=== PATIENT | female | born 1980 | race Caucasian/White ===

== ENCOUNTER 2017-01-25 21:39 | Outpatient (CLI) | payer OTHER | END 2017-01-25 21:40 | disposition home or self-care (01) | DX: R19.7 Diarrhea, unspecified (principal) ==

== ENCOUNTER 2017-01-31 08:24 | Outpatient (CLI) | payer OTHER | END 2017-01-31 08:25 | disposition home or self-care (01) | DX: Z00.00 Encounter for general adult medical examination without abnormal findings (principal) ==

== ENCOUNTER 2017-02-15 09:40 | Outpatient (CLI) | payer OTHER ==
[2017-02-16 11:13] LABS: TEST RESULT REPORT (())
== END 2017-02-15 09:41 | disposition home or self-care (01) ==
LOC: LAB.WCP 09:40
PROVIDERS: ATTEND Family Medicine
DX: A09 Infectious gastroenteritis and colitis, unspecified (principal); Z11.3 Encounter for screening for infections with a predominantly sexual mode of transmission
CPT/HCPCS: 36415; 81599; 86704; 86706

== ENCOUNTER 2018-03-01 08:00 | Outpatient (CLI) | payer OTHER | END 2018-03-01 08:01 | disposition home or self-care (01) | LOC: LAB.R 08:00 | PROVIDERS: ATTEND Registered Nurse | DX: Z11.3 Encounter for screening for infections with a predominantly sexual mode of transmission (principal) | CPT/HCPCS: 87491; 87591 ==

== ENCOUNTER 2018-03-01 16:14 | Outpatient (CLI) | payer OTHER ==
[2018-03-01 16:55] LABS: HB2 TOTAL 14.5 g/dL; HEMOGLOBIN A1C 0.42 g/dL; HEMOGLOBIN A1C % 4.8 % (4.6-6.2)
[2018-03-01 17:35] LABS: THYROID STIMULATING HORMONE 5.54 uIU/mL (0.34-5.60)
[2018-03-01 17:41] LABS: PROLACTIN 14.28 ng/mL
[2018-03-01 18:03] LABS: FOLLICLE STIMULATING HORMONE 7.52 mIU/mL; LUTEINIZING HORMONE 18.39 mIU/mL
== END 2018-03-01 16:15 | disposition home or self-care (01) ==
LOC: LAB 16:14
PROVIDERS: ATTEND Registered Nurse
DX: N91.1 Secondary amenorrhea (principal); Z11.3 Encounter for screening for infections with a predominantly sexual mode of transmission
CPT/HCPCS: 36415; 81599; 82627; 82670; 83001; 83002; 83036; 84146; 84443; 87491; 87591

== ENCOUNTER 2018-03-16 08:01 | Outpatient (CLI) | payer OTHER ==
[2018-03-16 13:29] LABS: FOLLICLE STIMULATING HORMONE 6.42 mIU/mL
[2018-03-16 13:30] LABS: LUTEINIZING HORMONE 11.02 mIU/mL
== END 2018-03-16 08:02 | disposition home or self-care (01) ==
LOC: LAB.WCP 08:01
PROVIDERS: ATTEND Registered Nurse
DX: E28.2 Polycystic ovarian syndrome (principal)
CPT/HCPCS: 36415; 82670; 83001; 83002

== ENCOUNTER 2018-04-03 13:36 | Outpatient (CLI) | payer OTHER | END 2018-04-03 13:37 | disposition home or self-care (01) | LOC: LAB 13:36 | PROVIDERS: ATTEND Registered Nurse | DX: E28.2 Polycystic ovarian syndrome (principal) | CPT/HCPCS: 36415; 84144 ==

== ENCOUNTER 2018-04-07 14:13 | Outpatient (CLI) | payer OTHER | END 2018-04-07 14:14 | disposition home or self-care (01) | LOC: LAB.WCP 14:13 | PROVIDERS: ATTEND Registered Nurse | DX: E02 Subclinical iodine-deficiency hypothyroidism (principal) | CPT/HCPCS: 36415; 84443 ==

== ENCOUNTER 2018-11-27 16:06 | Outpatient (CLI) | payer OTHER | END 2018-11-27 16:07 | disposition critical access hospital (66) | LOC: EMS 16:06 | PROVIDERS: ATTEND Surgery | DX: R00.0 Tachycardia, unspecified (principal); R07.89 Other chest pain | CPT/HCPCS: A0425; A0427 ==

== ENCOUNTER 2018-11-27 16:40 | Emergency (ER) | payer OTHER ==
--- NOTE | 2018-11-27 17:00 | ED Physician Documentation ---
PD HPI CHEST PAIN - Stated complaint Stated Complaint: CP - History obtained from History obtained from: Patient - History of Present Illness Timing - onset: How many hours ago (1), Today Timing - onset during: Light activity. No: Exertion Timing - duration: Hours (1) Timing - details: Abrupt onset, Still present (improved but not resolved yet, still feeling anxious and like heart is going fast.) Quality: Tightness, Indigestion Location: Substernal Radiation: Back Associated symptoms: Shortness of air, Palpitations (feeling like heart is going fast/racing). No: Nausea, Feeling faint / dizzy Similar symptoms before: Has not had sx before Recently seen: Not recently seen Review of Systems Constitutional: denies: Fever, Chills Nose: denies: Rhinorrhea / runny nose, Congestion Throat: denies: Sore throat Cardiac: reports: Chest pain / pressure, Palpitations. denies: Pedal edema, Calf pain Respiratory: denies: Cough GI: denies: Abdominal Pain, Nausea, Vomiting, Diarrhea Musculoskeletal: denies: Extremity swelling Neurologic: reports: Headache. denies: Near syncope, Syncope PD PAST MEDICAL HISTORY - Past Medical History Cardiovascular: None Respiratory: None Neuro: None Endocrine/Autoimmune: None - Present Medications Home Medications: Ambulatory Orders Medication Instructions Recorded Confirmed Levothyroxine Sodium [Synthroid] 50 mcg PO DAILY 11/27/18 11/27/18 metFORMIN [Glucophage] 500 mg 11/27/18 - Allergies Allergies/Adverse Reactions: Allergies Allergy/AdvReac Type Severity Reaction Status Date / Time No Known Drug Allergies Allergy Verified 11/27/18 17:32 - Social History Does the pt smoke?: No Does the pt drink ETOH?: No Does the pt have substance abuse?: No - Family History Family history: denies: Venous thromboembolism PD ED PE NORMAL - Vitals Vital signs reviewed: Yes - General General: Alert and oriented X 3, Well developed/nourished, Other (seems anxious) - HEENT HEENT: Pharynx benign - Neck Neck: Supple, no meningeal sign, No adenopathy - Cardiac Cardiac: RRR, No murmur - Respiratory Respiratory: Clear bilaterally - Abdomen Abdomen: Soft, Non tender - Back Back: No CVA TTP - Derm Derm: Normal color, Warm and dry - Extremities Extremities: No deformity, No tenderness to palpate, No edema, No calf tenderness / cord - Neuro Neuro: Alert and oriented X 3, No motor deficit, Normal speech Eye Opening: Spontaneous Motor: Obeys Commands Verbal: Oriented GCS Score: 15 Results - Vitals Vitals: Oxygen O2 Source Room air - EKG (time done) 16:52 Rate: Rate (enter#) (82) Rhythm: NSR [place]: Normal Intervals: Normal [place] QRS: Normal Ischemia: Normal ST segments. No: ST elevation c/w ischemia, ST depression, T wave inversion (but has some flattening ) - Labs Labs: Laboratory Tests 11/27/18 11/27/18 11/27/18 17:45 17:45 17:45 WBC 12.5 H RBC 4.11 L Hgb 12.9 Hct 37.6 MCV 91.5 MCH 31.3 H MCHC 34.2 RDW 12.4 Plt Count 233 MPV 8.8 Neut # (Auto) 10.9 H Lymph # (Auto) 0.9 L Coal # (Auto) 0.6 Eos # (Auto) 0.0 Baso # (Auto) 0.0 Absolute Nucleated RBC 0.00 Nucleated RBC % 0.0 Sodium 133 L Potassium 3.4 L Chloride 96 L Carbon Dioxide 27 Anion Gap 10.0 BUN 14 Creatinine 0.7 Estimated GFR (MDRD) 95 Glucose 110 H Calcium 10.2 Magnesium 1.7 Total Bilirubin 0.4 AST 21 ALT 16 Alkaline Phosphatase 36 L Troponin I < 0.04 B-Natriuretic Peptide Total Protein 6.8 Albumin 4.2 Globulin 2.6 Albumin/Globulin Ratio 1.6 Lipase 29 TSH 11/27/18 11/27/18 17:45 17:45 WBC RBC Hgb Hct MCV MCH MCHC RDW Plt Count MPV Neut # (Auto) Lymph # (Auto) Coal # (Auto) Eos # (Auto) Baso # (Auto) Absolute Nucleated RBC Nucleated RBC % Sodium Potassium Chloride Carbon Dioxide Anion Gap BUN Creatinine Estimated GFR (MDRD) Glucose Calcium Magnesium Total Bilirubin AST ALT Alkaline Phosphatase Troponin I B-Natriuretic Peptide 13 Total Protein Albumin Globulin Albumin/Globulin Ratio Lipase TSH 1.77 PD MEDICAL DECISION MAKING - ED course Complexity details: reviewed results, considered differential (she has the feeling of dyspnea and heart racing still, with vitals showing HR <100 and good sats. No respiratory symptoms per se, except feeling of dyspnea. Negative Wells criteria. ), d/w patient Departure - Departure Disposition: Home, Self Care Clinical Impression: Chest discomfort, Heart rate fast Condition: Stable Record reviewed to determine appropriate education?: Yes Instructions: ED Chest Pain Atypical Unkn Cause Follow-Up: Cain Eldridge MD [Primary Care Provider] - Comments: No signs of heart attack or currently no heart arrhythmia. Your blood tests are okay. Not sure the cause of the fast heart rate and chest discomfort. It could have been an irregular heart rhythm temporarily. It could have been a low blood sugar episode or other things as well. If you have no further episodes then I would be fine. If you have recurrent episodes even to a mild degree, follow-up with your primary care to have them assess for heart rhythm recording device or other tests. Discharge Date/Time: 11/27/18 19:56
[2018-11-27] MEDS ORDERED: SODIUM CHLORIDE 0.9% 1,000 ML IV ONE (17:27)
[2018-11-27 17:53] LABS: BASOPHILS % (AUTO) 0.2 %; EOSINOPHILS % (AUTO) 0.1 %; HGB - HEMOGLOBIN 12.9 g/dL (12.0-16.0); LYMPHOCYTES # (AUTO) 0.9 10^3/uL (1.5-3.5); LYMPHOCYTES % (AUTO) 7.6 %; MEAN CORPUSCULAR HEMOGLOBIN 31.3 pg (27.0-31.0); MEAN CORPUSCULAR HGB CONC 34.2 g/dL (32.0-36.0); MEAN CORPUSCULAR VOLUME 91.5 fL (81.0-99.0); MEAN PLATELET VOLUME 8.8 fL (7.9-10.8); MONOCYTES # (AUTO) 0.6 10^3/uL (0.0-1.0); MONOCYTES % (AUTO) 4.6 %; NEUTROPHILS # (AUTO) 10.9 10^3/uL (1.5-6.6); NEUTROPHILS % (AUTO) 87.5 %; PLT - PLATELET COUNT 233 10^3/uL (130-450); RED BLOOD COUNT 4.11 10^6/uL (4.20-5.40); RED CELL DISTRIBUTION WIDTH 12.4 % (12.0-15.0); WHITE BLOOD COUNT 12.5 x10^3/uL (4.8-10.8)
[2018-11-27 18:15] LABS: ALBUMIN 4.2 g/dL (3.2-5.5); ALBUMIN/GLOBULIN RATIO 1.6 (1.0-2.2); BILIRUBIN,TOTAL 0.4 mg/dL (0.2-1.0); CALCIUM 10.2 mg/dL (8.5-10.3); CREATININE 0.7 mg/dL (0.4-1.0); MAGNESIUM 1.7 mg/dL (1.7-2.8); TOTAL PROTEIN 6.8 g/dL (6.7-8.2)
[2018-11-27 19:38] VITALS: BP 98/66
== END 2018-11-27 19:56 | disposition home or self-care (01) ==
LOC: EDUNIT# → ED 16:40
DX: R07.89 Other chest pain (principal); R00.0 Tachycardia, unspecified
CPT/HCPCS: 36415; 80053; 83690; 83735; 83880; 84443; 84484; 85025; 93005; 96360; 96361; 99284

== ENCOUNTER 2018-12-11 08:00 | Outpatient (CLI) | payer OTHER ==
[2018-12-11 13:11] LABS: ALBUMIN 4.5 g/dL (3.2-5.5); ALBUMIN/GLOBULIN RATIO 1.5 (1.0-2.2); BILIRUBIN,TOTAL 0.9 mg/dL (0.2-1.0); CALCIUM 9.6 mg/dL (8.5-10.3); CREATININE 0.6 mg/dL (0.4-1.0); THYROID STIMULATING HORMONE 1.58 uIU/mL (0.34-5.60); TOTAL PROTEIN 7.5 g/dL (6.7-8.2)
[2018-12-11 13:14] LABS: FREE T4 (FREE THYROXINE) 1.08 ng/dL (0.58-1.64)
[2018-12-11 13:55] LABS: HB2 TOTAL 16.1 g/dL; HEMOGLOBIN A1C 0.51 g/dL; HEMOGLOBIN A1C % 5.1 % (4.6-6.2)
== END 2018-12-11 23:59 | disposition home or self-care (01) ==
LOC: LAB.WCP 08:00
PROVIDERS: ATTEND Family Medicine
DX: R73.01 Impaired fasting glucose (principal); E03.9 Hypothyroidism, unspecified
CPT/HCPCS: 36415; 80053; 83036; 84439; 84443

== ENCOUNTER 2019-01-09 10:21 | Outpatient (CLI) | payer OTHER ==
[2019-01-09 13:11] LABS: CALCIUM 9.3 mg/dL (8.5-10.3); CREATININE 0.6 mg/dL (0.4-1.0)
== END 2019-01-09 10:22 | disposition home or self-care (01) ==
LOC: LAB.WCP 10:21
PROVIDERS: ATTEND Family Medicine
DX: E87.6 Hypokalemia (principal)
CPT/HCPCS: 36415; 80048

== ENCOUNTER 2019-01-22 08:00 | Outpatient (CLI) | payer OTHER ==
[2019-01-22 14:31] LABS: CHOL/HDL RATIO 2.1 (<4.4); CHOLESTEROL 166 mg/dL; HDL CHOLESTEROL 78 mg/dL; LDL CHOLESTEROL,CALCULATED 79 mg/dL; VLDL CHOLESTEROL 9 mg/dL
== END 2019-01-22 23:59 | disposition home or self-care (01) ==
LOC: LAB.WCP 08:00
PROVIDERS: ATTEND Internal Medicine Cardiovascular Disease
DX: Z00.00 Encounter for general adult medical examination without abnormal findings (principal)
CPT/HCPCS: 36415; 80061; 83721

== ENCOUNTER 2019-04-09 08:00 | Outpatient (CLI) | payer OTHER ==
[2019-04-09 20:11] LABS: CALCIUM 9.8 mg/dL (8.5-10.3); CREATININE 0.8 mg/dL (0.4-1.0)
== END 2019-04-09 23:59 | disposition home or self-care (01) ==
LOC: LAB.WCP 08:00
PROVIDERS: ATTEND Family Medicine
DX: E78.6 Lipoprotein deficiency (principal); E03.9 Hypothyroidism, unspecified
CPT/HCPCS: 36415; 80048; 84443

== ENCOUNTER 2019-04-27 08:00 | Outpatient (CLI) | payer OTHER | END 2019-04-27 23:59 | disposition home or self-care (01) | LOC: LAB.R 08:00 | PROVIDERS: ATTEND Physician Assistant | DX: R35.0 Frequency of micturition (principal) | CPT/HCPCS: 87086 ==

== ENCOUNTER 2019-09-06 07:00 | Outpatient (CLI) | payer OTHER ==
[2019-09-06 12:22] LABS: CALCIUM 9.2 mg/dL (8.5-10.3); CREATININE 0.6 mg/dL (0.4-1.0)
== END 2019-09-06 23:59 | disposition home or self-care (01) ==
LOC: LAB.WCP 07:00
PROVIDERS: ATTEND Family Medicine
DX: E87.6 Hypokalemia (principal); E03.9 Hypothyroidism, unspecified
CPT/HCPCS: 36415; 80048; 84443

== ENCOUNTER 2019-10-15 15:31 | Outpatient (CLI) | payer OTHER ==
[2019-10-15 19:07] LABS: HB2 TOTAL 15.6 g/dL; HEMOGLOBIN A1C 0.48 g/dL
[2019-10-15 19:08] LABS: CALCIUM 9.9 mg/dL (8.5-10.3); CREATININE 0.7 mg/dL (0.4-1.0)
== END 2019-10-15 23:59 | disposition home or self-care (01) ==
LOC: LAB.WCP 15:31
PROVIDERS: ATTEND Family Medicine
DX: E28.2 Polycystic ovarian syndrome (principal); E87.6 Hypokalemia; E03.9 Hypothyroidism, unspecified; R73.01 Impaired fasting glucose
CPT/HCPCS: 36415; 80048; 83036

== ENCOUNTER 2019-11-06 06:58 | Outpatient (CLI) | payer OTHER ==
--- NOTE | 2019-11-06 08:18 | Ultrasound Report ---
Reason: PCOS Procedure Date: 11/06/2019 Accession Number: [id number] / [id number] Procedure: US - Pelvic w/Transvaginal CPT Code: Final Report FULL RESULT: EXAM: PELVIC ULTRASOUND EXAM DATE: 11/06/2019 07:50 AM. CLINICAL HISTORY: Polycystic ovary syndrome. LMP: 10/08/2019. COMPARISON: None. TECHNIQUE: Realtime transabdominal pelvic scan performed to identify the uterus and adnexa and as an overview of other pelvic structures, followed by transvaginal scan to provide greater detail of the uterus and adnexa, with static image documentation. FINDINGS: Uterus: 7.9 x 3.7 x 4.5 cm, volume 68.8 cc. Anteverted position. Normal overall size and echotexture. Masses: In the lower uterine segment to the left of midline is an ovoid intramural hypoechoic lesion measuring 1 x 0.7 x 0.8 cm in diameter, compatible with a uterine fibroid. Endometrium: 4.7 mm. Normal. Cervix: Unremarkable. Right Ovary: 2.8 x 2.4 x 1.4 cm, volume 4.9 cc. Normal echotexture and blood flow. Physiologic ovarian follicles. Left Ovary: 2.1 x 1.9 x 1.5 cm, volume 3.1 cc. Normal echotexture and blood flow. Physiologic ovarian follicles. Free Fluid: None. Other: None. IMPRESSION: 1. Physiologic ovarian follicles. No sonographic evidence of polycystic ovaries. 2. Left lower uterine segment intramural fibroid measuring 1 x 0.7 x 0.8 cm in diameter. 3. The remainder of the pelvic ultrasound is unremarkable. [facility]
== END 2019-11-06 06:59 | disposition home or self-care (01) ==
LOC: DI 06:58
PROVIDERS: ATTEND Obstetrics & Gynecology
DX: D25.1 Intramural leiomyoma of uterus (principal)
CPT/HCPCS: 76830; 76856

== ENCOUNTER 2020-01-22 09:08 | Outpatient (CLI) | payer OTHER ==
[2020-01-22 13:13] LABS: BASOPHILS % (AUTO) 0.5 %; EOSINOPHILS # (AUTO) 0.1 10^3/uL (0.0-0.7); EOSINOPHILS % (AUTO) 1.9 %; HGB - HEMOGLOBIN 14.5 g/dL (12.0-16.0); LYMPHOCYTES # (AUTO) 1.9 10^3/uL (1.5-3.5); LYMPHOCYTES % (AUTO) 51.5 %; MEAN CORPUSCULAR HEMOGLOBIN 31.3 pg (27.0-31.0); MEAN CORPUSCULAR HGB CONC 33.6 g/dL (32.0-36.0); MEAN CORPUSCULAR VOLUME 93.1 fL (81.0-99.0); MEAN PLATELET VOLUME 11.2 fL (7.9-10.8); MONOCYTES # (AUTO) 0.3 10^3/uL (0.0-1.0); MONOCYTES % (AUTO) 8.6 %; NEUTROPHILS # (AUTO) 1.4 10^3/uL (1.5-6.6); NEUTROPHILS % (AUTO) 37.2 %; PLT - PLATELET COUNT 244 10^3/uL (130-450); RED BLOOD COUNT 4.64 10^6/uL (4.20-5.40); RED CELL DISTRIBUTION WIDTH 12.3 % (12.0-15.0); WHITE BLOOD COUNT 3.7 x10^3/uL (4.8-10.8)
[2020-01-22 13:36] LABS: HB2 TOTAL 14.9 g/dL; HEMOGLOBIN A1C 0.43 g/dL; HEMOGLOBIN A1C % 4.8 % (4.6-6.2)
[2020-01-22 13:38] LABS: BUN - BLOOD UREA NITROGEN 11 mg/dL (6-20); CALCIUM 8.9 mg/dL (8.5-10.3); CARBON DIOXIDE - CO2 21 mmol/L (21-32); CHLORIDE 104 mmol/L (101-111); CHOLESTEROL 183 mg/dL; CREATININE 0.7 mg/dL (0.4-1.0); GLUCOSE 96 mg/dL (70-100); HDL CHOLESTEROL 91 mg/dL; LDL CHOLESTEROL,CALCULATED 84 mg/dL; LDL/HDL RATIO 0.9 (<4.4); SODIUM 135 mmol/L (135-145); VLDL CHOLESTEROL 8 mg/dL
== END 2020-01-22 23:59 | disposition home or self-care (01) ==
LOC: LAB.WCP 09:08
PROVIDERS: ATTEND Family Medicine
DX: R73.01 Impaired fasting glucose (principal); E87.6 Hypokalemia; R00.0 Tachycardia, unspecified; E03.9 Hypothyroidism, unspecified
CPT/HCPCS: 36415; 80048; 80061; 83036; 83721; 85025

== ENCOUNTER 2020-01-25 13:30 | Outpatient (CLI) | payer OTHER ==
[2020-01-25 18:06] LABS: BILIRUBIN,URINE NEGATIVE (NEGATIVE); GLUCOSE, URINE (UA) NEGATIVE (NEGATIVE); KETONES,URINE (UA) NEGATIVE (NEGATIVE); LEUKOCYTE ESTERASE, URINE NEGATIVE (NEGATIVE); NITRITE,URINE NEGATIVE (NEGATIVE); OCCULT BLOOD,URINE NEGATIVE (NEGATIVE); PH,URINE 7.5 PH (5.0-7.5); PROTEIN,URINE NEGATIVE (NEGATIVE); UROBILINOGEN,URINE 0.2 (NORMAL) E.U./dL (NORMAL)
[2020-01-25 18:13] LABS: CLARITY,URINE CLEAR (CLEAR)
== END 2020-01-25 23:59 | disposition home or self-care (01) ==
LOC: LAB.WCP 13:30
PROVIDERS: ATTEND Nurse Practitioner Family
DX: R35.0 Frequency of micturition (principal)
CPT/HCPCS: 81001; 81003; 87086